=== PATIENT | male | born 1970 | race Caucasian/White ===

== ENCOUNTER 2019-11-08 02:27 | Inpatient (IN) | payer MEDICAID ==
[~2019-11-08] VITALS: Ht 170.2 cm; Wt 110.0 kg
[~2019-11-08 02:27] MED LIST: AMOX-422 PO; OMEP20CA15 PO; PER10325T PO
[2019-11-08] MEDS ORDERED: normal saline 1000ML IV soln IVB ONE (02:50)
[2019-11-08 03:19] LABS: BASOPHILS # (AUTO) 0.1 X10'3 (0-0.2); EOSINOPHILS # (AUTO) 0.2 X10'3 (0-0.9); EOSINOPHILS % (AUTO) 1.7 % (0-6); HEMATOCRIT 50.2 % (42.0-52.0); HEMOGLOBIN 16.9 g/dl (14.0-17.9); LYMPHOCYTES # (AUTO) 2.6 X10'3 (1.1-4.8); LYMPHOCYTES % (AUTO) 22.4 % (21-51); MEAN CORPUSCULAR HEMOGLOBIN 29.4 PG (27.0-31.0); MEAN CORPUSCULAR HGB CONC 33.6 g/dL (33.0-36.5); MEAN CORPUSCULAR VOLUME 87.7 FL (78-98); MEAN PLATELET VOLUME 8.1 FL (7.4-10.4); MONOCYTES # (AUTO) 0.5 X10'3 (0-0.9); MONOCYTES % (AUTO) 4.4 % (2-12); NEUTROPHILS # (AUTO) 8.3 X10'3 (1.8-7.7); NEUTROPHILS % (AUTO) 70.5 % (42-75); PLATELET COUNT 310 X10'3 (140-440); RED BLOOD COUNT 5.73 X10'6 (4.70-6.10); RED CELL DISTRIBUTION WIDTH 14.8 % (11.5-14.5); WHITE BLOOD COUNT 11.7 X10'3 (4.5-11.0)
[2019-11-08 03:25] LABS: PARTIAL THROMBOPLASTIN TIME 31 SECONDS (22-32)
[2019-11-08 03:30] LABS: ALANINE AMINOTRANSFERASE 34 U/L (12-78); ALBUMIN 3.3 G/DL (3.4-5.0); ALBUMIN/GLOBULIN RATIO 0.8 (1.1-1.5); ALKALINE PHOSPHATASE 134 IU/L (46-116); ANION GAP 7 (8-16); ASPARTATE AMINO TRANSFERASE 19 U/L (10-37); BILIRUBIN,TOTAL 0.3 MG/DL (0.1-1.0); BLOOD UREA NITROGEN 16 MG/DL (7-18); BUN/CREATININE RATIO 13.4 (5.4-32.0); CALCIUM 8.8 MG/DL (8.5-10.1); CHLORIDE 102 MMOL/L (99-107); CREATININE 1.19 MG/DL (0.60-1.10); GLUCOSE 284 MG/DL (70-104); POTASSIUM 3.6 MMOL/L (3.5-5.1); SODIUM 137 MMOL/L (135-145); TOTAL CARBON DIOXIDE 27.8 MMOL/L (24-32); TOTAL PROTEIN 7.3 G/DL (6.4-8.2); eGFR 65 ML/MIN
[2019-11-08] MEDS ORDERED: iohexol 300mg/ml 100ml inj. ONE (03:47)
[2019-11-08 04:05] LABS: ETHANOL < 0.010 GM/DL (0.0-0.010)
[2019-11-08] MEDS ORDERED: vancomycin/NS 1 GM ADD-VANTAGE 250 ML IV ONE (04:20)
[2019-11-08 04:30] LABS: URINE AMPHETAMINE SCREEN NEGATIVE (Neg); URINE BARBITUATE SCREEN NEGATIVE (Neg); URINE BENZODIAZEPINES SCREEN NEGATIVE (Neg); URINE CANNABINOID SCREEN POSITIVE (Neg); URINE COCAINE SCREEN NEGATIVE (Neg); URINE METHADONE SCREEN NEGATIVE (Neg); URINE OPIATE SCREEN NEGATIVE (Neg); URINE PHENCYCLIDINE SCREEN NEGATIVE (Neg)
[2019-11-08] MEDS ORDERED: morphine 4 MG/ML inj SYRINge IV ONE ×2 (07:05→08:25)
[2019-11-08] MEDS ORDERED: normal saline 1000ml 1,000 ML IV SCH ×2 (08:27→11:03)
[2019-11-08] MEDS ORDERED: potassium CL 10mEq/100ml bag 100 ML IV PRN ×2 (08:30)
[2019-11-08] MEDS ORDERED: magnesium 4gm in 100ml NS 100 ML IV PRN (08:30)
[2019-11-08] MEDS ORDERED: HYDROcodone/acetaminophen 5mg/325mg tablet PO PRN (08:30)
[2019-11-08] MEDS ORDERED: HYDROcodone/acetaminophen 10/325mg tab PO PRN (08:30)
[2019-11-08] MEDS ORDERED: magnesium Cl slow-release 64mg tablet PO PRN (08:30)
[2019-11-08] MEDS ORDERED: ondansetron/PF 4mg/2ml inj IV PRN (08:30)
[2019-11-08] MEDS ORDERED: acetaminophen 325mg tablet PO PRN ×2 (08:30)
[2019-11-08] MEDS ORDERED: potassium Cl 20 mEq SR tablet PO PRN ×2 (08:30)
[2019-11-08] MEDS ORDERED: magnesium 2GM in 50ml NS 50 ML IV PRN (08:30)
[2019-11-08] MEDS ORDERED: morphine 2 MG/ML inj. syringe IV PRN ×2 (08:30)
--- NOTE | 2019-11-08 09:45 | NUR ---
Patient in room ED 14. I have received report from Rashaun WHITLEY and had the opportunity to ask questions and assume patient care.
[2019-11-08 10:00] VITALS: BP 137/96
[2019-11-08 10:58] LABS: HEMOGLOBIN A1C 7.9 % (4.5-6.2)
[2019-11-08] MEDS ORDERED: glucagon, human recombinant 1mg kit SUBCUT PRN (11:30)
[2019-11-08] MEDS ORDERED: MESSAGE TO PHARMACY PO ONE (11:30)
[2019-11-08] MEDS ORDERED: dextrose ORAL solution 15 GM/59 ML bottle PO PRN ×2 (11:30)
[2019-11-08] MEDS ORDERED: insulin Lispro (HumaLOG) vial - multi-dose SQ SCH (11:30)
[2019-11-08] MEDS ORDERED: dextrose 50%-water 50ml dispensing syringe IV PRN ×2 (11:30)
--- NOTE | 2019-11-08 11:30 | NUR ---
Problems reprioritized. Patient report given, questions answered & plan of care reviewed with Monica WHITLEY.
[2019-11-08 11:35] VITALS: BP 132/76
--- NOTE | 2019-11-08 11:53 | NUR ---
I agree with previous nurses assessment.
[2019-11-08 12:00] VITALS: BP 156/82
[2019-11-08] MEDS ORDERED: NO HOME MEDS (13:46)
--- NOTE | 2019-11-08 17:04 | NUR ---
Patient refusing IV fluids, states he does not need IV fluids because he drinks water.
[2019-11-08] MEDS ORDERED: amox tr/potassium clavulanate 875/125mg TAB PO SCH (17:30)
[2019-11-08 18:00] VITALS: BP 174/106
--- NOTE | 2019-11-08 18:30 | NUR ---
Patient in room ORTHO 4022. I have received report from Monica WHITLEY and had the opportunity to ask questions and assume patient care.
--- NOTE | 2019-11-08 18:40 | NUR ---
Patient very grumpy and wanting to leave AMA. Security called due to patient cussing. Paged and notified VIMAL PHILLIPS taken out. Patient has all belongings.
--- NOTE | 2019-11-08 18:44 | NUR ---
I paged Dr. Irvin that this patient was upset and left ama.
--- NOTE | 2019-11-08 18:44 | NUR ---
Problems reprioritized. Patient report given, questions answered & plan of care reviewed with Marleny WHITLEY.
[2019-11-08] MEDS ORDERED: heparin, porcine 5000 units/ml vial SQ SCH (20:00)
[2019-11-08] MEDS ORDERED: docusate sod 100mg capsule PO SCH (20:00)
[2019-11-08] MEDS ORDERED: K and/or MAG REPLACEMENT MC SCH (20:00)
[2019-11-08] MEDS ORDERED: temazepam 15mg capsule PO PRN (21:00)
[2019-11-08] MEDS ORDERED: insulin glargine (Lantus) pen - multi-dose SQ SCH (21:00)
== END 2019-11-08 18:50 | disposition left against medical advice (07) | DRG 383 ==
LOC: ER 02:27 → ED HOLD 08:27 → ORTHO 4S 09:53
PROVIDERS: ADMIT Internal Medicine; ATTEND Internal Medicine
PROC: 0GBG3ZX Excision of Left Thyroid Gland Lobe, Percutaneous Approach, Diagnostic (ICD-10-PCS; principal; 2019-11-08)
PROC: BW2F1ZZ Computerized Tomography (CT Scan) of Neck using Low Osmolar Contrast (ICD-10-PCS; 2019-11-08)
DX: L03.221 Cellulitis of neck (principal); E11.42 Type 2 diabetes mellitus with diabetic polyneuropathy; E07.9 Disorder of thyroid, unspecified; F17.210 Nicotine dependence, cigarettes, uncomplicated; F12.90 Cannabis use, unspecified, uncomplicated; Z53.29 Procedure and treatment not carried out because of patient's decision for other reasons; G89.29 Other chronic pain; K21.9 Gastro-esophageal reflux disease without esophagitis; M54.9 Dorsalgia, unspecified; Z87.442 Personal history of urinary calculi; Z90.49 Acquired absence of other specified parts of digestive tract; Z71.6 Tobacco abuse counseling
CPT/HCPCS: 36415; 60100; 70491; 71045; 76942; 80053; 80305; 80320; 82948; 83036; 83605; 84145; 84443; 85025; 85610; 85730; 87040; 87070; 87081; 93005; 99285; G0378; J1815; J2270; J3370; J7030; Q9967

== ENCOUNTER 2019-11-19 18:23 | Emergency (ER) | payer MEDICAID ==
[~2019-11-19] VITALS: Ht 170.2 cm; Wt 115.0 kg
[~2019-11-19 18:23] MED LIST changes: -AMOX-422 PO; +NO HOME MEDS; -OMEP20CA15 PO; -PER10325T PO
[2019-11-19 18:25] VITALS: BP 149/102
[2019-11-19] MEDS ORDERED: NAPR-56 PO (20:04)
[2019-11-19] MEDS ORDERED: ACET-3068 PO (20:04)
== END 2019-11-19 20:11 | disposition home or self-care (01) ==
LOC: ER 18:24
DX: C73 Malignant neoplasm of thyroid gland (principal); K21.9 Gastro-esophageal reflux disease without esophagitis; G89.29 Other chronic pain; G62.9 Polyneuropathy, unspecified; F12.90 Cannabis use, unspecified, uncomplicated; Z87.442 Personal history of urinary calculi; Z98.890 Other specified postprocedural states; Z79.899 Other long term (current) drug therapy
CPT/HCPCS: 99283

== ENCOUNTER 2020-10-17 23:27 | Emergency (ER) | payer MEDICAID ==
[~2020-10-17] VITALS: Ht 172.7 cm; Wt 258.0 kg
[2020-10-18] MEDS ORDERED: tranexamic acid 1gm/0.7% sal. 100 ML IV ONE (00:10)
[2020-10-18] MEDS ORDERED: diphenhydrAMINE 50 mg/ml inj IV ONE (00:10)
[2020-10-18] MEDS ORDERED: famotidine/PF 10 mg/ml inj IV ONE (00:10)
[2020-10-18] MEDS ORDERED: methylPREDNISolone sod succ 125mg/2ml vial IV ONE (00:10)
[2020-10-18] MEDS ORDERED: normal saline 1000ML IV soln IVB ONE (00:10)
[2020-10-18] MEDS ORDERED: diphenhydrAMINE 50 mg/ml inj ONE (00:50)
[2020-10-18] MEDS ORDERED: LORazepam 2 mg/ml vial IV ONE (01:45)
[2020-10-18 03:00] VITALS: BP 151/100
[2020-10-18 03:08] LABS: BASOPHILS # (AUTO) 0.1 X10'3 (0-0.2); BASOPHILS % (AUTO) 0.7 % (0-1); EOSINOPHILS # (AUTO) 0.1 X10'3 (0-0.9); EOSINOPHILS % (AUTO) 1.1 % (0-6); HEMATOCRIT 47.3 % (42.0-52.0); LYMPHOCYTES # (AUTO) 1.3 X10'3 (1.1-4.8); LYMPHOCYTES % (AUTO) 10.7 % (21-51); MEAN CORPUSCULAR HEMOGLOBIN 30.3 PG (27.0-31.0); MEAN CORPUSCULAR HGB CONC 33.8 g/dL (33.0-36.5); MEAN CORPUSCULAR VOLUME 89.8 FL (78-98); MEAN PLATELET VOLUME 8.5 FL (7.4-10.4); MONOCYTES # (AUTO) 0.4 X10'3 (0-0.9); NEUTROPHILS # (AUTO) 10.2 X10'3 (1.8-7.7); NEUTROPHILS % (AUTO) 84.5 % (42-75); PLATELET COUNT 335 X10'3 (140-440); RED BLOOD COUNT 5.27 X10'6 (4.70-6.10); RED CELL DISTRIBUTION WIDTH 14.4 % (11.5-14.5); WHITE BLOOD COUNT 12.1 X10'3 (4.5-11.0)
[2020-10-18 03:25] LABS: ALANINE AMINOTRANSFERASE 36 U/L (12-78); ALBUMIN 3.5 G/DL (3.4-5.0); ALKALINE PHOSPHATASE 98 IU/L (46-116); ANION GAP 8 (8-16); ASPARTATE AMINO TRANSFERASE 26 U/L (10-37); BILIRUBIN,TOTAL 0.4 MG/DL (0.1-1.0); BLOOD UREA NITROGEN 17 MG/DL (7-18); BUN/CREATININE RATIO 12.6 (5.4-32.0); CALCIUM 8.6 MG/DL (8.5-10.1); CHLORIDE 105 MMOL/L (99-107); CREATININE 1.35 MG/DL (0.60-1.10); GLUCOSE 132 MG/DL (70-104); POTASSIUM 3.8 MMOL/L (3.5-5.1); SODIUM 140 MMOL/L (135-145); TOTAL CARBON DIOXIDE 27.5 MMOL/L (24-32); TOTAL PROTEIN 7.1 G/DL (6.4-8.2); eGFR 56 ML/MIN
[2020-10-18] MEDS ORDERED: PRED20TA PO (05:26)
== END 2020-10-18 05:42 | disposition home or self-care (01) ==
LOC: ER 23:28
DX: T78.3XXA Angioneurotic edema, initial encounter (principal); K21.9 Gastro-esophageal reflux disease without esophagitis; G89.29 Other chronic pain; F12.90 Cannabis use, unspecified, uncomplicated; Z87.442 Personal history of urinary calculi; Z98.890 Other specified postprocedural states; X58.XXXA Exposure to other specified factors, initial encounter; Y93.89 Activity, other specified; Y92.89 Other specified places as the place of occurrence of the external cause; Y99.8 Other external cause status
CPT/HCPCS: 36415; 80053; 84145; 85025; 96365; 96375; 99285; J1200; J2060; J2930; J3490; J7030

== ENCOUNTER 2021-03-07 03:01 | Emergency (ER) | payer MEDICAID ==
[~2021-03-07] VITALS: Ht 172.7 cm; Wt 112.7 kg
[2021-03-07] MEDS ORDERED: famotidine/PF 10 mg/ml inj IV ONE (04:00)
[2021-03-07] MEDS ORDERED: diphenhydrAMINE 50 mg/ml inj IV ONE (04:00)
[2021-03-07] MEDS ORDERED: methylPREDNISolone sod succ 125mg/2ml vial IV ONE (04:00)
[2021-03-07 05:07] LABS: ALBUMIN 3.3 G/DL (3.4-5.0); ANION GAP 10 (8-16); BLOOD UREA NITROGEN 13 MG/DL (7-18); BUN/CREATININE RATIO 12.5 (5.4-32.0); CALCIUM 8.6 MG/DL (8.5-10.1); CHLORIDE 96 MMOL/L (99-107); CREATININE 1.04 MG/DL (0.60-1.10); GLUCOSE 449 MG/DL (70-104); SODIUM 134 MMOL/L (135-145); TOTAL CARBON DIOXIDE 28.1 MMOL/L (24-32); eGFR 76 ML/MIN
[2021-03-07 05:17] LABS: POTASSIUM 4.5 MMOL/L (3.5-5.1)
[2021-03-07] MEDS ORDERED: iohexol 300mg/ml 100ml inj. ONE (05:55)
[2021-03-07 06:13] LABS: BASOPHILS # (AUTO) 0.1 X10'3 (0-0.2); BASOPHILS % (AUTO) 0.7 % (0-1); EOSINOPHILS # (AUTO) 0.1 X10'3 (0-0.9); EOSINOPHILS % (AUTO) 0.9 % (0-6); HEMATOCRIT 45.3 % (42.0-52.0); HEMOGLOBIN 15.9 g/dl (14.0-17.9); LYMPHOCYTES # (AUTO) 1.8 X10'3 (1.1-4.8); LYMPHOCYTES % (AUTO) 13.4 % (21-51); MEAN CORPUSCULAR HEMOGLOBIN 30.2 PG (27.0-31.0); MEAN CORPUSCULAR HGB CONC 35.2 g/dL (33.0-36.5); MEAN CORPUSCULAR VOLUME 85.9 FL (78-98); MEAN PLATELET VOLUME 8.7 FL (7.4-10.4); MONOCYTES # (AUTO) 0.4 X10'3 (0-0.9); MONOCYTES % (AUTO) 3.2 % (2-12); NEUTROPHILS # (AUTO) 10.8 X10'3 (1.8-7.7); NEUTROPHILS % (AUTO) 81.8 % (42-75); PLATELET COUNT 323 X10'3 (140-440); RED BLOOD COUNT 5.28 X10'6 (4.70-6.10); RED CELL DISTRIBUTION WIDTH 14.6 % (11.5-14.5); WHITE BLOOD COUNT 13.2 X10'3 (4.5-11.0)
[2021-03-07] MEDS ORDERED: PRED20TA PO (06:28)
[2021-03-07] MEDS ORDERED: dexamethasone sod phosphate 10mg/ml inj IV STA (09:10)
[2021-03-07] MEDS ORDERED: ampicillin/sulbac 3gm/NS 100ml 100 ML IV ONE (09:40)
[2021-03-07] MEDS ORDERED: AMOX-422 PO (10:09)
[2021-03-07 10:56] VITALS: BP 149/100
[2021-03-07] MEDS ORDERED: ampicillin/sulbac 3gm/NS 100ml 100 ML IV SCH (14:00)
== END 2021-03-07 10:58 | disposition home or self-care (01) ==
LOC: ER 03:02
DX: T78.3XXA Angioneurotic edema, initial encounter (principal); J06.0 Acute laryngopharyngitis; K21.9 Gastro-esophageal reflux disease without esophagitis; G89.29 Other chronic pain; M54.9 Dorsalgia, unspecified
CPT/HCPCS: 36415; 70491; 80048; 85025; 96365; 96375; 99285; J1100; J1200; J2930; J3490; Q9967; J0295

== ENCOUNTER 2021-08-04 08:40 | Inpatient (IN) | payer MEDICAID ==
[2021-07-29 15:40] LABS: BASOPHILS # (AUTO) 0.1 X10'3 (0-0.2); EOSINOPHILS # (AUTO) 0.1 X10'3 (0-0.9); EOSINOPHILS % (AUTO) 0.9 % (0-6); LYMPHOCYTES # (AUTO) 1.8 X10'3 (1.1-4.8); LYMPHOCYTES % (AUTO) 13.3 % (21-51); MEAN CORPUSCULAR HGB CONC 33.5 g/dL (33.0-36.5); MEAN CORPUSCULAR VOLUME 86.6 FL (78-98); MEAN PLATELET VOLUME 8.1 FL (7.4-10.4); MONOCYTES # (AUTO) 0.6 X10'3 (0-0.9); MONOCYTES % (AUTO) 4.3 % (2-12); NEUTROPHILS # (AUTO) 10.6 X10'3 (1.8-7.7); NEUTROPHILS % (AUTO) 80.5 % (42-75); PRE OP HEMATOCRIT 49.1 % (42.0-52.0); PRE OP HEMOGLOBIN 16.4 g/dL (14.0-17.9); PRE OP PLATELET COUNT 390 X10'3 (140-440); RED BLOOD COUNT 5.67 X10'6 (4.70-6.10); RED CELL DISTRIBUTION WIDTH 14.1 % (11.5-14.5)
[2021-07-29 16:10] LABS: ALBUMIN 3.7 G/DL (3.4-5.0); ALBUMIN/GLOBULIN RATIO 1.1 (1.1-1.5); ALKALINE PHOSPHATASE 110 IU/L (46-116); BLOOD UREA NITROGEN 14 MG/DL (7-18); BUN/CREATININE RATIO 13.9 (5.4-32.0); CALCIUM 8.5 MG/DL (8.5-10.1); CHLORIDE 104 MMOL/L (99-107); CREATININE 1.01 MG/DL (0.60-1.10); PRE OP ALT 41 U/L (30-65); PRE OP ANION GAP 11 (8-16); PRE OP AST 25 U/L (10-37); PRE OP BILIRUB, TOTAL 0.3 MG/DL (0.0-1.0); PRE OP GLUCOSE 180 MG/DL (70-104); PRE OP SODIUM 143 MMOL/L (135-145); TOTAL CARBON DIOXIDE 28.5 MMOL/L (24-32); TOTAL PROTEIN 7.2 G/DL (6.4-8.2); eGFR 78 ML/MIN
[2021-08-04] VITALS (23 sets, daily range): BP systolic 115–150; BP diastolic 66–97
[~2021-08-04] VITALS: Ht 172.7 cm; Wt 107.0 kg
[~2021-08-04 08:40] MED LIST changes: +INSU100I65 SQ; +LEVO175T7 PO; -NO HOME MEDS; +cefazolin/dext.iso 2gm/50ml IV ONE; +famotidine 20mg tablet PO ONE; +ringers solution, lacted 1,000 ML IV SCH
[2021-08-04] MEDS ORDERED: morphine 2 MG/ML inj. syringe IV PRN (09:25)
[2021-08-04] MEDS ORDERED: ringers solution, lacted 1,000 ML IV SCH (09:25)
[2021-08-04] MEDS ORDERED: meperidine/PF 25mg/ml syringe IV PRN ×3 (09:25)
[2021-08-04] MEDS ORDERED: proCHLORperazine 10 MG/2 ml inj IV PRN (09:25)
[2021-08-04] MEDS ORDERED: morphine 4 MG/ML inj SYRINge IV PRN (09:25)
[2021-08-04] MEDS ORDERED: ondansetron/PF 4mg/2ml inj IV PRN ×2 (09:25→15:15)
[2021-08-04] MEDS ORDERED: BUPIVAcaine 0.5% inj/PF 30 ML ONE (11:38)
[2021-08-04] MEDS ORDERED: LIDOcaine 1% 30ml preserv. free vial ONE (11:38)
[2021-08-04] MEDS ORDERED: midazolam 1 mg/ML 2ml injection ONE (12:00)
[2021-08-04] MEDS ORDERED: fentaNYL /PF 50mcg/ml 5ml ampule ONE ×2 (12:02→13:55)
[2021-08-04] MEDS ORDERED: LIDOcaine 2% (20mg/ml) 5ml vial ONE (12:11)
[2021-08-04] MEDS ORDERED: propofol inj 20 ML IV ONE (12:11)
[2021-08-04] MEDS ORDERED: rocuronium 10mg/ml inj IV ONE ×2 (12:11→15:04)
[2021-08-04] MEDS ORDERED: naloxone 0.4 mg/ml inj IV PRN (15:15)
[2021-08-04] MEDS ORDERED: CADD PCA waste documentation MC PRN (15:15)
[2021-08-04] MEDS ORDERED: HYDROmorph./NS 0.2 mg/ml CADD 100 ML IV SCH (15:15)
[2021-08-04] MEDS ORDERED: glucagon, human recombinant 1mg kit SUBCUT PRN (15:20)
[2021-08-04] MEDS ORDERED: dextrose 50%-water 50ml dispensing syringe IV PRN ×2 (15:20)
[2021-08-04] MEDS ORDERED: MESSAGE TO PHARMACY PO ONE (15:20)
[2021-08-04] MEDS ORDERED: insulin Lispro (HumaLOG) vial - multi-dose SQ SCH (15:20)
[2021-08-04] MEDS ORDERED: DEXTROSE 15 GM of carb/4 tabs (each vial/BOTTLE has 4 tablets) PO PRN ×2 (15:20)
[2021-08-04] MEDS: HYDROmorph./NS 0.2 mg/ml CADD 50 ML IV SCH ×4 (16:17→23:00)
--- NOTE | 2021-08-04 17:24 | NUR ---
Patient in room . I have received report from GUTIERREZ Yadav and had the opportunity to ask questions and assume patient care.
--- NOTE | 2021-08-04 17:27 | NUR ---
REPORT GIVEN TO EUGENIO WHITLEY. PT TRANSPORTED IN BED TO 355B IN STABLE CONDITION. DRESSINGS ON ABD DRY AND INTACT, ABD BINDER IN PLACE. PT COMPLAINS OF WANTING GONZALEZ CATHETER REMOVED, DRAINING ADEQUATE AMOUNTS OF CLEAR YELLOW URINE. VITAL SIGNS STABLE PT TRANSPORTED WITH 02 AT 3 LTR NASAL CANNULA. RECEIVING RN AT BEDSIDE UPON ARRIVAL. APPLICATION DBA ALSO AT BEDSIDE Addendum: 08/04/21 at 1742 by Alysia Emmanuel RN Amended: Links added.
--- NOTE | 2021-08-04 17:35 | NUR ---
Patient just arrived on the floor.
--- NOTE | 2021-08-04 18:24 | NUR ---
Problems reprioritized. Patient report given, questions answered & plan of care reviewed with GUTIERREZ Mcintyre.
--- NOTE | 2021-08-04 18:30 | NUR ---
Patient in room [facility]OT[facility] 355. I have received report from GABINO WHITLEY and had the opportunity to ask questions and assume patient care.
[2021-08-04] MEDS: ringers solution, lacted 1,000 ML IV SCH ×2 (19:00→21:55)
--- NOTE | 2021-08-04 19:00 | NUR ---
PATIENT BS 207 AND IS DIABETIC, A NEW POST HERNIA REPAIR, DID NOT EAT HIS DINNER YET CLEAR LIQUIDS AND REFUSED HUMULOG INSULIN TO HAVE HIS BLOOD SUGAR TREATMENT.
[2021-08-04] MEDS ORDERED: heparin, porcine 5000 units/ml vial SQ SCH (20:00)
--- NOTE | 2021-08-04 20:40 | NUR ---
Pt reported that last bowel movement was yesterday. Pt reported that bowel movement was brown, firm, normal frequency, and nothing abnormal from usual bowel patterns. Addendum: 08/04/21 at 2048 by Justin AGUILA Amended: Links added.
[2021-08-04] MEDS ORDERED: insulin glargine (Lantus) pen - multi-dose SQ SCH ×2 (21:00)
--- NOTE | 2021-08-04 23:16 | NUR ---
Student documentation: I have reviewed interventions, assessments performed and documented by Harman NASCIMENT[facility] .
[2021-08-05] VITALS: BP 133/83
[2021-08-05] MEDS: HYDROmorph./NS 0.2 mg/ml CADD 50 ML IV SCH ×4 (01:00→07:00)
[2021-08-05] MEDS: ringers solution, lacted 1,000 ML IV SCH (01:11)
--- NOTE | 2021-08-05 06:30 | NUR ---
Problems reprioritized. Patient report given, questions answered & plan of care reviewed with JOHANN WHITLEY.
--- NOTE | 2021-08-05 06:30 | NUR ---
Patient in room [facility]OT[facility] 355. I have received report from Katy Burns RN and had the opportunity to ask questions and assume patient care.
[2021-08-05 07:00] VITALS: BP 131/71
[2021-08-05] MEDS ORDERED: PER5325T PO (07:39)
[2021-08-05] MEDS ORDERED: oxyCODONE/APAP 5-325mg tablet PO PRN (07:40)
[2021-08-05 07:47] LABS: ALBUMIN 3.1 G/DL (3.4-5.0); ANION GAP 9 (8-16); BLOOD UREA NITROGEN 14 MG/DL (7-18); BUN/CREATININE RATIO 15.9 (5.4-32.0); CALCIUM 7.9 MG/DL (8.5-10.1); CHLORIDE 103 MMOL/L (99-107); CREATININE 0.88 MG/DL (0.60-1.10); GLUCOSE 154 MG/DL (70-104); POTASSIUM 4.1 MMOL/L (3.5-5.1); SODIUM 138 MMOL/L (135-145); TOTAL CARBON DIOXIDE 26.4 MMOL/L (24-32); eGFR > 90 ML/MIN
--- NOTE | 2021-08-05 07:55 | NUR ---
pt agitated and impatiently wanting to leave AMA, advised I would call arnaldo and get DC order which was done by calling Dr Howell. placed orders and called in RX for pain. Pt accepted DC instructions and verbalizes follow up care. DC home via ambulating self to lobby, as he would not wait for a WC. All belongings taken.
[2021-08-05] MEDS ORDERED: levoTHYROXINE 175mcg tablet PO SCH (08:00)
== END 2021-08-05 07:57 | disposition home or self-care (01) | DRG 227 ==
LOC: PAS 08:40 → SUR 3N 15:18
PROVIDERS: ADMIT Surgery; ATTEND Surgery
PROC: 0DNW4ZZ Release Peritoneum, Percutaneous Endoscopic Approach (ICD-10-PCS; 2021-08-04)
PROC: 8E0W4CZ Robotic Assisted Procedure of Trunk Region, Percutaneous Endoscopic Approach (ICD-10-PCS; 2021-08-04)
PROC: 0WUF4JZ Supplement Abdominal Wall with Synthetic Substitute, Percutaneous Endoscopic Approach (ICD-10-PCS; principal; 2021-08-04 11:48)
DX: K43.0 Incisional hernia with obstruction, without gangrene (principal); K66.0 Peritoneal adhesions (postprocedural) (postinfection); Z79.899 Other long term (current) drug therapy; Z79.4 Long term (current) use of insulin
CPT/HCPCS: 36415; 80048; 80053; 82948; 83036; 85025; 93005; A4215; A4618; C1781; G0378; J1170; J1644; J1815; J2250; J2405; J2704; J3010; J3490; J7120; S0020; U0003; U0005

== ENCOUNTER 2022-03-23 12:23 | Inpatient (IN) | payer MEDICAID ==
[2022-03-18 15:47] LABS: BASOPHILS # (AUTO) 0.2 X10'3 (0-0.2); BASOPHILS % (AUTO) 1.2 % (0-1); EOSINOPHILS # (AUTO) 0.2 X10'3 (0-0.9); EOSINOPHILS % (AUTO) 1.6 % (0-6); LYMPHOCYTES # (AUTO) 2.1 X10'3 (1.1-4.8); LYMPHOCYTES % (AUTO) 16.4 % (21-51); MEAN CORPUSCULAR HEMOGLOBIN 29.3 PG (27.0-31.0); MEAN CORPUSCULAR HGB CONC 33.4 g/dL (33.0-36.5); MEAN CORPUSCULAR VOLUME 87.7 FL (78-98); MONOCYTES # (AUTO) 0.7 X10'3 (0-0.9); MONOCYTES % (AUTO) 5.4 % (2-12); NEUTROPHILS # (AUTO) 9.5 X10'3 (1.8-7.7); NEUTROPHILS % (AUTO) 75.4 % (42-75); PRE OP HEMATOCRIT 50.1 % (42.0-52.0); PRE OP HEMOGLOBIN 16.7 g/dL (14.0-17.9); PRE OP PLATELET COUNT 322 X10'3 (140-440); RED BLOOD COUNT 5.71 X10'6 (4.70-6.10); RED CELL DISTRIBUTION WIDTH 14.5 % (11.5-14.5)
[2022-03-18 15:56] LABS: ALBUMIN 3.3 G/DL (3.4-5.0); ALBUMIN/GLOBULIN RATIO 0.8 (1.1-1.5); ALKALINE PHOSPHATASE 113 IU/L (46-116); BLOOD UREA NITROGEN 17 MG/DL (7-18); BUN/CREATININE RATIO 15.6 (5.4-32.0); CALCIUM 8.7 MG/DL (8.5-10.1); CHLORIDE 104 MMOL/L (99-107); CREATININE 1.09 MG/DL (0.60-1.10); PRE OP ALT 40 U/L (30-65); PRE OP ANION GAP 7 (8-16); PRE OP AST 26 U/L (10-37); PRE OP BILIRUB, TOTAL 0.3 MG/DL (0.0-1.0); PRE OP GLUCOSE 165 MG/DL (70-104); PRE OP POTASSIUM 3.5 MMOL/L (3.4-5.1); PRE OP SODIUM 139 MMOL/L (135-145); TOTAL PROTEIN 7.4 G/DL (6.4-8.2); eGFR 71 ML/MIN
[~2022-03-23] VITALS: Ht 172.7 cm; Wt 111.4 kg
[2022-03-23] VITALS (27 sets, daily range): BP systolic 133–169; BP diastolic 89–114
[~2022-03-23 12:23] MED LIST changes: +ceFAZolin inj. 2,000 MG in dextrose 5%-water 100 ML IV ONE; -cefazolin/dext.iso 2gm/50ml IV ONE; -ringers solution, lacted 1,000 ML IV SCH
[2022-03-23] MEDS: ringers solution, lacted 1,000 ML IV SCH ×2 (12:52→17:20)
[2022-03-23] MEDS ORDERED: meperidine/PF 25mg/ml syringe IV PRN ×2 (14:20)
[2022-03-23] MEDS ORDERED: morphine 2 MG/ML inj. syringe IV PRN (14:20)
[2022-03-23] MEDS ORDERED: ondansetron/PF 4mg/2ml inj IV PRN ×2 (14:20→17:20)
[2022-03-23] MEDS ORDERED: morphine 4 MG/ML inj SYRINge IV PRN (14:20)
[2022-03-23] MEDS ORDERED: proCHLORperazine 10 MG/2 ml inj IV PRN (14:20)
[2022-03-23] MEDS ORDERED: ringers solution, lacted 1,000 ML IV SCH (14:20)
[2022-03-23] MEDS ORDERED: BUPIVACAINE liposomal/PF 13.3 MG/ML vial IM ONE (14:47)
[2022-03-23] MEDS ORDERED: LIDOcaine 1% 30ml preserv. free vial ONE (14:47)
[2022-03-23] MEDS ORDERED: BUPIVAcaine/PF 2.5mg/ml (0.25%) 10ml vial ONE (14:47)
[2022-03-23] MEDS ORDERED: sevoflurane 250ml liquid IH ONE (15:07)
[2022-03-23] MEDS ORDERED: midazolam 1 mg/ML 2ml injection ONE (15:11)
[2022-03-23] MEDS ORDERED: propofol inj 20 ML IV ONE (15:15)
[2022-03-23] MEDS ORDERED: fentaNYL /PF 50mcg/ml 5ml ampule ONE (15:15)
[2022-03-23] MEDS ORDERED: rocuronium 10mg/ml inj IV ONE (15:16)
[2022-03-23] MEDS ORDERED: glycopyrrolate 0.2mg/ml inj ONE (17:12)
[2022-03-23] MEDS ORDERED: neostigmine methylsulfate 1 MG/ML 10ml vial ONE (17:12)
[2022-03-23] MEDS ORDERED: naloxone 0.4 mg/ml inj IV PRN (17:20)
--- NOTE | 2022-03-23 17:35 | NUR ---
Received from OR via HOSPITAL BED, accompanied by Anesthesiologist DR HOLDER and report given by Anesthesiolgist. PT IS GROGGY BUT RESPONDS TO VERBAL STIMULI AND ABLE TO FLORES. PT PLACED ON BEDSIDE MONITOR, VSS. PT IN ST WITH RATE IN LOW 100'S. PT IS RECEIVING 8L O2 TO MASK, TOLERATING WELL WITH O2 SAT >95%. WILL TITRATE DOWN PT TOLERATES. PT HAS 20G PIV TO RT AC WITH LR INFUSING ORDERED. PT HAS DRSG XE TO ABD THAT ARE CDI WITH ABD BINDER IN PLACE. PT IS PAINFUL, WILL TREAT ORDERED AND CONTINUE TO ASSESS
[2022-03-23] MEDS ORDERED: DEXTROSE 15 GM of carb/4 tabs (each vial/BOTTLE has 4 tablets) PO PRN ×2 (17:40)
[2022-03-23] MEDS ORDERED: dextrose 50%-water 50ml dispensing syringe IV PRN ×2 (17:40)
[2022-03-23] MEDS ORDERED: MESSAGE TO PHARMACY PO ONE (17:40)
[2022-03-23] MEDS ORDERED: glucagon, human recombinant 1mg kit SUBCUT PRN (17:40)
[2022-03-23] MEDS ORDERED: acetaminophen 1,000mg/100ml IV 100 ML IV ONE (17:45)
[2022-03-23] MEDS: meperidine/PF 25mg/ml syringe IV PRN ×2 (17:49→18:14)
[2022-03-23] MEDS ORDERED: PCA WASTE DOCUMENTATION MC PRN (18:40)
[2022-03-23] MEDS: HYDROmorph/NS 0.2 mg/ml PCA 100 ML IV SCH ×4 (18:41→23:00)
[2022-03-23] MEDS: docusate sod 100mg capsule PO SCH (20:00)
[2022-03-23] MEDS ORDERED: insulin glargine (Lantus) pen - multi-dose SQ SCH ×2 (21:00)
--- NOTE | 2022-03-23 21:05 | NUR ---
PATIENT HAS MET ALL CRITERIA FOR TRANSFER TO THE SURGICAL FLOOR. VSS. DRESSINGS INTACT. BED LOW, CALL LIGHT PRESENT AND 2 RAILS UP. RN PRESENT TO ACCEPT CARE OF PATIENT AND REPORT HAS BEEN CALLED CHRISTIAN HEATON RN. ALL QUESTIONS ANSWERED TO ACCEPTING RN.
--- NOTE | 2022-03-23 21:15 | NUR ---
Arrived from RR via hospital bed alert and oriented. Pt pleasant, oriented to suroundings dressing to abd cdi and abd binder. pain controlled with BUSINESS SUPPORT ASSOCIATE.
[2022-03-23] MEDS: insulin glargine (Lantus) pen - multi-dose SQ SCH (22:28)
[2022-03-24] VITALS: BP 125/96
[2022-03-24] MEDS: HYDROmorph/NS 0.2 mg/ml PCA 100 ML IV SCH ×11 (01:00→23:44)
[2022-03-24 02:00] VITALS: BP 145/101
--- NOTE | 2022-03-24 04:29 | NUR ---
Hourly checks have been made, pt has been away from hazards and pt has had call light within reach.
[2022-03-24 06:00] VITALS: BP 140/96
--- NOTE | 2022-03-24 06:09 | NUR ---
Report to Lauren WHITLEY.
[2022-03-24 06:48] LABS: BASOPHILS # (AUTO) 0.2 X10'3 (0-0.2); BASOPHILS % (AUTO) 1.1 % (0-1); EOSINOPHILS % (AUTO) 0.3 % (0-6); HEMATOCRIT 47.6 % (42.0-52.0); HEMOGLOBIN 16.2 g/dl (14.0-17.9); LYMPHOCYTES # (AUTO) 1.4 X10'3 (1.1-4.8); LYMPHOCYTES % (AUTO) 9.2 % (21-51); MEAN CORPUSCULAR HEMOGLOBIN 29.6 PG (27.0-31.0); MEAN CORPUSCULAR HGB CONC 34.1 g/dL (33.0-36.5); MEAN CORPUSCULAR VOLUME 86.7 FL (78-98); MEAN PLATELET VOLUME 7.9 FL (7.4-10.4); MONOCYTES # (AUTO) 0.5 X10'3 (0-0.9); MONOCYTES % (AUTO) 3.3 % (2-12); NEUTROPHILS % (AUTO) 86.1 % (42-75); PLATELET COUNT 323 X10'3 (140-440); RED CELL DISTRIBUTION WIDTH 14.3 % (11.5-14.5); WHITE BLOOD COUNT 15.1 X10'3 (4.5-11.0)
[2022-03-24 07:37] LABS: ALBUMIN 3.1 G/DL (3.4-5.0); ANION GAP 7 (8-16); BLOOD UREA NITROGEN 11 MG/DL (7-18); BUN/CREATININE RATIO 10.2 (5.4-32.0); CALCIUM 8.1 MG/DL (8.5-10.1); CHLORIDE 101 MMOL/L (99-107); CREATININE 1.08 MG/DL (0.60-1.10); GLUCOSE 186 MG/DL (70-104); SODIUM 137 MMOL/L (135-145); TOTAL CARBON DIOXIDE 29.1 MMOL/L (24-32); eGFR 72 ML/MIN
[2022-03-24 07:40] LABS: POTASSIUM 4.4 MMOL/L (3.5-5.1)
[2022-03-24] MEDS: levoTHYROXINE 175mcg tablet PO SCH (09:35)
[2022-03-24] MEDS: docusate sod 100mg capsule PO SCH ×2 (09:35→20:05)
[2022-03-24] MEDS: enoxaparin 40mg/0.4ml syringe SQ SCH (09:37)
[2022-03-24 10:00] VITALS: BP 140/60
[2022-03-24] MEDS: insulin Lispro (HumaLOG) vial - multi-dose SQ SCH ×3 (10:38→20:03)
--- NOTE | 2022-03-24 14:30 | NUR ---
Dr Howell phoned to check on pt, and was informed of pt's lack of gas and pt c/o feeling "bloated", as well as documented BPs. MD stated he'd round on pt after done w/ surgeries at other hospital. Pt was informed of conversation and MD's anticipated time of rounding. Pt denied "bloating" and said, "I dont have any gas because I've only been on clear liquids." Pt requested particular colors and flavors of jello, popsicles, and juice (pt likes red coloring and butt flavors, not green and yellows). Requests were faxed to the dietary dept.
[2022-03-24] MEDS: ringers solution, lacted 1,000 ML IV SCH ×2 (17:32)
--- NOTE | 2022-03-24 19:05 | NUR ---
Patient report given, questions answered & plan of care reviewed with GUTIERREZ Salazar.
[2022-03-24] MEDS ORDERED: HYDROmorphone inj. 0.5 MG/0.5 ML DISP.SYRIN IV PRN (20:45)
[2022-03-24 22:00] VITALS: BP 141/86
[2022-03-24] MEDS: insulin glargine (Lantus) pen - multi-dose SQ SCH (23:07)
[2022-03-24] MEDS ORDERED: PCA WASTE DOCUMENTATION MC PRN (23:45)
[2022-03-25] MEDS: HYDROmorphone 1 mg/ml syringe IV PRN ×3 (04:12→12:40)
[2022-03-25 06:00] VITALS: BP 144/93
[2022-03-25 06:30] LABS: BASOPHILS # (AUTO) 0.1 X10'3 (0-0.2); BASOPHILS % (AUTO) 0.8 % (0-1); EOSINOPHILS # (AUTO) 0.2 X10'3 (0-0.9); EOSINOPHILS % (AUTO) 1.5 % (0-6); HEMATOCRIT 44.3 % (42.0-52.0); HEMOGLOBIN 15.1 g/dl (14.0-17.9); LYMPHOCYTES # (AUTO) 1.8 X10'3 (1.1-4.8); LYMPHOCYTES % (AUTO) 17.6 % (21-51); MEAN CORPUSCULAR HEMOGLOBIN 29.7 PG (27.0-31.0); MEAN CORPUSCULAR VOLUME 87.3 FL (78-98); MEAN PLATELET VOLUME 7.9 FL (7.4-10.4); MONOCYTES # (AUTO) 0.6 X10'3 (0-0.9); NEUTROPHILS # (AUTO) 7.5 X10'3 (1.8-7.7); NEUTROPHILS % (AUTO) 74.1 % (42-75); PLATELET COUNT 292 X10'3 (140-440); RED BLOOD COUNT 5.08 X10'6 (4.70-6.10); RED CELL DISTRIBUTION WIDTH 14.3 % (11.5-14.5); WHITE BLOOD COUNT 10.1 X10'3 (4.5-11.0)
[2022-03-25 07:09] LABS: ANION GAP 7 (8-16); BLOOD UREA NITROGEN 9 MG/DL (7-18); BUN/CREATININE RATIO 8.7 (5.4-32.0); CALCIUM 8.1 MG/DL (8.5-10.1); CHLORIDE 101 MMOL/L (99-107); CREATININE 1.03 MG/DL (0.60-1.10); GLUCOSE 137 MG/DL (70-104); POTASSIUM 3.9 MMOL/L (3.5-5.1); SODIUM 139 MMOL/L (135-145); TOTAL CARBON DIOXIDE 31.5 MMOL/L (24-32); eGFR 76 ML/MIN
[2022-03-25] MEDS: docusate sod 100mg capsule PO SCH (07:48)
[2022-03-25] MEDS: levoTHYROXINE 175mcg tablet PO SCH (07:48)
[2022-03-25] MEDS: enoxaparin 40mg/0.4ml syringe SQ SCH (07:50)
[2022-03-25] MEDS: ringers solution, lacted 1,000 ML IV SCH (07:51)
[2022-03-25 10:00] VITALS: BP 157/97
--- NOTE | 2022-03-25 11:56 | NUR ---
Problems reprioritized. Patient report given, questions answered & plan of care reviewed with Lauren WHITLEY.
--- NOTE | 2022-03-25 13:28 | NUR ---
Diabetes consult: Pt w/ hx of DM A1c 8 per EMR. Pt declined verbal education though accepted written DM ed w/ RD contact info. Addendum: 03/25/22 at [address] Amended: Links added.
--- NOTE | 2022-03-25 13:30 | NUR ---
Pt refused post lunch insulin stating "I'll take my own insulin when I get home."
[2022-03-25] MEDS ORDERED: oxyCODONE/APAP 5-325mg tablet PO PRN (13:50)
[2022-03-25] MEDS ORDERED: OXYC-145 PO (13:52)
[2022-03-25] MEDS ORDERED: oxyCODONE/APAP 10/325mg tablet PO PRN (13:54)
[2022-03-25] MEDS ORDERED: oxyCODONE/APAP 5-325mg tablet PO ONE (14:30)
== END 2022-03-25 14:44 | disposition home or self-care (01) | DRG 227 ==
LOC: PAS 12:23 → SUR 3N 17:30
PROVIDERS: ADMIT Surgery; ATTEND Surgery
PROC: 8E0W4CZ Robotic Assisted Procedure of Trunk Region, Percutaneous Endoscopic Approach (ICD-10-PCS; 2022-03-23)
PROC: 0DNW4ZZ Release Peritoneum, Percutaneous Endoscopic Approach (ICD-10-PCS; 2022-03-23)
PROC: 0DN84ZZ Release Small Intestine, Percutaneous Endoscopic Approach (ICD-10-PCS; 2022-03-23)
PROC: 0DNL4ZZ Release Transverse Colon, Percutaneous Endoscopic Approach (ICD-10-PCS; 2022-03-23)
PROC: 0WUF4JZ Supplement Abdominal Wall with Synthetic Substitute, Percutaneous Endoscopic Approach (ICD-10-PCS; principal; 2022-03-23 15:07)
DX: K43.2 Incisional hernia without obstruction or gangrene (principal); K66.0 Peritoneal adhesions (postprocedural) (postinfection); Z79.899 Other long term (current) drug therapy; Z79.4 Long term (current) use of insulin
CPT/HCPCS: 36415; 80048; 80053; 82948; 83036; 85025; 93005; A4215; A4615; A4618; C1758; C1781; C9290; G0378; J0131; J0690; J1170; J1650; J1815; J2175; J2250; J2270; J2405; J2704; J2710; J3010; J3490; J7060; J7120

== ENCOUNTER 2023-03-22 08:38 | Day surgery (SDC) | payer MEDICAID ==
[2023-03-17 15:09] LABS: BASOPHILS # (AUTO) 0.2 X10'3 (0-0.2); BASOPHILS % (AUTO) 1.5 % (0-1); EOSINOPHILS # (AUTO) 0.2 X10'3 (0-0.9); EOSINOPHILS % (AUTO) 1.2 % (0-6); LYMPHOCYTES # (AUTO) 2.1 X10'3 (1.1-4.8); LYMPHOCYTES % (AUTO) 16.5 % (21-51); MEAN CORPUSCULAR HEMOGLOBIN 28.9 PG (27.0-31.0); MEAN CORPUSCULAR HGB CONC 33.1 g/dL (33.0-36.5); MEAN CORPUSCULAR VOLUME 87.1 FL (78-98); MEAN PLATELET VOLUME 8.1 FL (7.4-10.4); MONOCYTES # (AUTO) 0.6 X10'3 (0-0.9); MONOCYTES % (AUTO) 4.7 % (2-12); NEUTROPHILS # (AUTO) 9.7 X10'3 (1.8-7.7); NEUTROPHILS % (AUTO) 76.1 % (42-75); PRE OP HEMATOCRIT 50.7 % (42.0-52.0); PRE OP HEMOGLOBIN 16.8 g/dL (14.0-17.9); PRE OP PLATELET COUNT 326 X10'3 (140-440); PRE OP WHITE BLOOD COUNT 12.8 10'3 (4.8-10.8); RED BLOOD COUNT 5.81 X10'6 (4.70-6.10)
[2023-03-17 15:33] LABS: ALBUMIN 3.3 G/DL (3.4-5.0); ALBUMIN/GLOBULIN RATIO 0.8 (1.1-1.5); ALKALINE PHOSPHATASE 115 IU/L (46-116); BLOOD UREA NITROGEN 15 MG/DL (7-18); BUN/CREATININE RATIO 11.9 (10.0-20.0); CALCIUM 8.6 MG/DL (8.5-10.1); CHLORIDE 103 MMOL/L (99-107); CREATININE 1.26 MG/DL (0.60-1.10); PRE OP ALT 25 U/L (30-65); PRE OP ANION GAP 2 (8-16); PRE OP AST 16 U/L (10-37); PRE OP BILIRUB, TOTAL 0.4 MG/DL (0.0-1.0); PRE OP GLUCOSE 171 MG/DL (70-104); PRE OP POTASSIUM 3.5 MMOL/L (3.4-5.1); PRE OP SODIUM 136 MMOL/L (135-145); TOTAL CARBON DIOXIDE 30.7 MMOL/L (24-32); TOTAL PROTEIN 7.6 G/DL (6.4-8.2); eGFR 60 ML/MIN
[2023-03-22] VITALS (10 sets, daily range): BP systolic 132–178; BP diastolic 94–117; PULSE 57–98; RESP 9–16; TEMP 97.2; O2SAT 92–99
[~2023-03-22] VITALS: Ht 170.2 cm; Wt 115.2 kg
[~2023-03-22 08:38] MED LIST changes: -ceFAZolin inj. 2,000 MG in dextrose 5%-water 100 ML IV ONE; +cefazolin 2gm/D5W 100mL 100 ML IV ONE; +ringers solution, lacted 1,000 ML IV SCH
[2023-03-22] MEDS ORDERED: insulin regular, human 10 units/0.1 ml syringe SQ ONE (10:35)
[2023-03-22] MEDS ORDERED: LIDOcaine 1% 30ml preserv. free vial ONE (11:21)
[2023-03-22] MEDS ORDERED: BUPIVAcaine/PF 2.5mg/ml (0.25%) 10ml vial ONE ×2 (11:21→11:31)
[2023-03-22] MEDS ORDERED: acetaminophen 1,000mg/100ml IV 100 ML IV PRN (11:30)
[2023-03-22] MEDS ORDERED: morphine 4 MG/ML inj SYRINge IV PRN (11:30)
[2023-03-22] MEDS ORDERED: morphine 2 MG/ML inj. syringe IV PRN (11:30)
[2023-03-22] MEDS ORDERED: proCHLORperazine 10 MG/2 ml inj IV PRN (11:30)
[2023-03-22] MEDS ORDERED: ondansetron/PF 4mg/2ml inj IV PRN (11:30)
[2023-03-22] MEDS ORDERED: hydrALAZINE 20mg/ml inj. IV PRN (11:30)
[2023-03-22] MEDS ORDERED: ringers solution, lacted 1,000 ML IV SCH (11:30)
[2023-03-22] MEDS ORDERED: labetalol 20mg/4ml (5mg/ml) syringe IV PRN (11:30)
[2023-03-22] MEDS ORDERED: ketorolac trometh. 30mg/ml inj. IV ONE (11:30)
[2023-03-22] MEDS ORDERED: meperidine/PF 25mg/ml syringe IV PRN ×2 (11:30)
[2023-03-22] MEDS ORDERED: BUPIVACAINE liposomal/PF 13.3 MG/ML vial IM ONE (11:31)
[2023-03-22] MEDS ORDERED: sevoflurane 250ml liquid IH ONE (11:38)
[2023-03-22] MEDS ORDERED: midazolam 1 mg/ML 2ml injection ONE (11:44)
[2023-03-22] MEDS ORDERED: fentaNYL /PF 50mcg/ml 5ml ampule ONE (11:44)
[2023-03-22] MEDS ORDERED: ondansetron/PF 4mg/2ml inj ONE (12:06)
[2023-03-22] MEDS ORDERED: rocuronium 10mg/ml inj IV ONE (12:07)
[2023-03-22] MEDS ORDERED: propofol inj 20 ML IV ONE (12:07)
[2023-03-22] MEDS ORDERED: dexamethasone sod phosphate 4mg/ml inj. ONE (12:07)
[2023-03-22] MEDS ORDERED: LIDOcaine 2% (20mg/ml) 5ml vial ONE (12:07)
[2023-03-22] MEDS ORDERED: oxyCODONE/APAP 5-325mg tablet PO PRN (13:50)
[2023-03-22] MEDS ORDERED: neostigmine methylsulfate 1 MG/ML 10ml vial ONE (13:56)
[2023-03-22] MEDS ORDERED: glycopyrrolate 0.2mg/ml inj ONE (13:56)
--- NOTE | 2023-03-22 14:02 | NUR ---
Received from OR via [facility] TO RR 7, accompanied by Anesthesiologist DANAE and report given by Anesthesiologist. PT PRESENTS ON 6L VIA MASK, PT HAS 5/10 ABD PAIN - WILL GIVE PAIN MEDS. LR RUNNING THRU PIV. 5 ABD LAP SITES CDI WITH ABD BINDER IN PLACE. NO S/S OF DISTRESS OR BLEEDING.
[2023-03-22] MEDS: meperidine/PF 25mg/ml syringe IV PRN ×2 (14:25→14:32)
--- NOTE | 2023-03-22 15:42 | NUR ---
PT HAS MET D/C CRITERIA. IV D/C'D. VSS. ABD DRESSINGS REMAINS CDI AND ABD BINDER ON. I HAVE REVIEWED D/C INSTRUCTIONS WITH PATIENT AND HE HAS VERBALIZED UNDERSTANDING OF INSTRUCTIONS. ALL QUESTIONS, COMMENTS, AND CONCERNS WERE ANSWERED AT THIS TIME. PT WAS ABLE TO GET DRESSED WITH ASSISTANCE AND AMBULATED TO W/C WITH STANDBY ASSIST. PT WAS ABLE TO VOID AND AMBULATED WITHOUT LOSS OF BALANCE. PT WAS WHEELED OUT TO PRIVATE VEHICLE AND TRANSFERRED INTO VEHICLE WITHOUT INCIDENT. PATIENT D/C HOME WITH ALL BELONGINGS.
== END 2023-03-22 15:42 | disposition home or self-care (01) ==
LOC: PAS 08:38
PROVIDERS: ATTEND Surgery
DX: K43.0 Incisional hernia with obstruction, without gangrene (principal); K66.0 Peritoneal adhesions (postprocedural) (postinfection); Z79.899 Other long term (current) drug therapy; Z90.49 Acquired absence of other specified parts of digestive tract; Z98.890 Other specified postprocedural states; E11.9 Type 2 diabetes mellitus without complications; Z79.4 Long term (current) use of insulin; F17.210 Nicotine dependence, cigarettes, uncomplicated
CPT/HCPCS: 36415; 49592; 64488; 80053; 82948; 85025; 93005; C1781; C9290; J0131; J0690; J1100; J1815; J1885; J2175; J2250; J2270; J2405; J2704; J2710; J3010; J3490; J7030; J7120; Z7506; Z7508; Z7512; A4215; A4615; A4618

== ENCOUNTER 2023-08-04 15:45 | Emergency (ER) | payer MEDICAID ==
[~2023-08-04] VITALS: Ht 170.2 cm; Wt 110.0 kg
[~2023-08-04 15:45] MED LIST changes: -cefazolin 2gm/D5W 100mL 100 ML IV ONE; -famotidine 20mg tablet PO ONE; -ringers solution, lacted 1,000 ML IV SCH
[2023-08-04 15:47] VITALS: BP 187/94; PULSE 57; TEMP 97.7; O2SAT 98
[2023-08-04] MEDS ORDERED: AMOX-117 PO (16:20)
[2023-08-04 16:48] VITALS: RESP 18
[2023-08-04] MEDS: ketorolac trometh inj. 60 MG/2 ML VIAL IM ONE (16:48)
== END 2023-08-04 16:53 | disposition home or self-care (01) ==
LOC: ER 15:45
DX: K04.7 Periapical abscess without sinus (principal); K21.9 Gastro-esophageal reflux disease without esophagitis; F12.90 Cannabis use, unspecified, uncomplicated; Z98.890 Other specified postprocedural states; Z87.442 Personal history of urinary calculi
CPT/HCPCS: 96372; 99283; J1885

== ENCOUNTER 2024-02-14 07:06 | Emergency (ER) | payer MEDICAID ==
[~2024-02-14] VITALS: Ht 170.2 cm; Wt 101.8 kg
[2024-02-14] MEDS: ketorolac trometh 15mg/ml vial 15 MG/ML ML IM ONE (08:34)
[2024-02-14] MEDS: cyclobenzaprine 10mg tablet PO ONE (08:34)
[2024-02-14 10:01] VITALS: BP 132/87; PULSE 70; RESP 16; TEMP 98.1; O2SAT 99
== END 2024-02-14 10:03 | disposition home or self-care (01) ==
LOC: ER 07:07
DX: M54.50 Low back pain, unspecified (principal)
CPT/HCPCS: 72100; 96372; 99283; J1885